=== PATIENT | female | born 1995 | race Two or more races ===

== ENCOUNTER 2019-05-26 00:51 | Emergency (ER) | payer OTHER ==
[~2019-05-26] VITALS: Ht 172.7 cm; Wt 91.6 kg
[2019-05-26 01:04] VITALS: BP 155/65
[2019-05-26] MEDS ORDERED: methylPREDNISolone SOD SUCC 125 MG/2 ML VL IM ONE (01:45)
[2019-05-26] MEDS ORDERED: ALBUTEROL SULF 2.5 MG/0.5ML(0.5%) NEB SOLN NEB ONE (01:45)
[2019-05-26] MEDS ORDERED: IPRATROPIUM BROM 0.5 MG/2.5ML INH SOL NEB ONE (01:45)
== END 2019-05-26 03:07 | disposition home or self-care (01) ==
LOC: ER 00:58
DX: J06.9 Acute upper respiratory infection, unspecified (principal); J04.0 Acute laryngitis
CPT/HCPCS: 71046; 94640; 96372; 99283; J2930; J7611; J7644